=== PATIENT | female | born 1955 | race Caucasian/White ===

== ENCOUNTER 2024-11-01 10:25 | Emergency (ER) | payer OTHER, SELFPAY ==
[2024-11-01 10:30] VITALS: BP 143/96
[2024-11-01 10:49] VITALS: BP 136/81; BMI 25.0
[2024-11-01] MEDS: MOTRIN 400 MG PO (11:50)
--- NOTE | 2024-11-01 12:20 | ED.GENMED ---
History of Present Illness
General
Chief Complaint: Musculo-Skeletal Complaint
Source: patient
Exam Limitations: none
Time Seen by Provider: 11/01/24 10:39
Nursing documentation reviewed up to this point in time: agreed with
History of Present Illness
History of Present Illness:
68-year-old female with history of hypertension and hyperlipidemia presents to the emergency room for evaluation of left shoulder and elbow pain. Patient says that she slipped on a slippery floor in the kitchen Prior to arrival. She said she
fell backwards landed on left elbow and forearm outstretched. She says she felt a 'crack' in her shoulder and elbow on the left. She has had some pain in the elbow as well as pain with range of motion in the shoulder since. She denies any head
strike. No headache or neck pain. She denies any back pain. Denies any chest or abdominal pain or any other injuries. She has been ambulatory since the fall. Denies blood thinners.
Past History
Past History
ED Past Medical History: None
ED Past Surgical History: None
Social History
Tobacco: Non-smoker
Review of Systems
Review of Systems
All Other Systems: ROS reviewed and negative except as documented in HPI and ROS
Musculoskeletal: Reports joint pain
Phy Exam
Physical Exam
Physical Exam:
General: Awake, alert; no acute distress
Head: Normocephalic, atraumatic
Eyes: Conjunctiva normal
Throat: Airway intact, handling secretions
Neck: Trachea midline, no cervical spine tenderness
Back: No signs of trauma the back or flank and no tenderness in the thoracic or lumbar spine
Lungs: Breathing comfortably no distress
Heart: Regular rate; no chest wall tenderness
Abd: Soft, non distended, nontender
Neuro: No gross deficits; motor and sensory intact distally left upper extremity across radial, median, ulnar nerve distributions
Skin: no rash, minor contusion to the left elbow
Extremities: Good pulses throughout specifically strong left radial, see below
Left shoulder--she has tenderness of the anterior humeral head and the AC joint on the left; she has no pain with range of motion of the left shoulder passively but on active range of motion significant pain with extension above 90 degrees,
abduction, internal and external rotation
Left elbow�patient has contusion over the olecranon and tenderness in this area but full range of motion of the elbow and no joint effusion
Left wrist--full range of motion, mild dorsal tenderness but no snuffbox tenderness
Scores
Heart Failure Risk
Heart Failure Risk Score: Not Applicable
Heart Score for Chest Pain Patients
STEMI patient?: Not applicable
Withdrawal Assessment of Alcohol
Withdrawal Assessment Completed?: Not applicable
Course
Orders/Labs/Results
Orders:
Orders
11/01/24 10:35
Elbow, 3 view, Left [CR Elbow - Left Min 3 Views ] Urgent
Comment:
Reason For Exam: injury
11/01/24 10:36
Wrist, Left 3 Views CR [CR Wrist - Left Min 3 Views] Urgent
Comment:
Reason For Exam: injury
11/01/24 11:41
CR Shoulder - Left Min 2 View* Urgent
Comment:
Reason For Exam: pain with fall
11/01/24 11:42
Ibuprofen [Motrin] 400 mg PO NOW STA
11/01/24 11:46
Ibuprofen [Motrin] 400 mg .ROUTE .STK-MED ONE
Vital Signs
Initial and Last Documented VS:
Initial Vital Signs
Temp Pulse Resp BP Pulse Ox
36.8 C 63 16 143/96 98
11/01/24 10:30 11/01/24 10:30 11/01/24 10:30 11/01/24 10:30 11/01/24 10:30
Last Documented Vital Signs
Temp Pulse Resp BP Pulse Ox
37.0 C 82 16 136/81 99
11/01/24 10:49 11/01/24 10:49 11/01/24 10:49 11/01/24 10:49 11/01/24 10:49
MDM/Problems Addressed
Differential Diagnosis Includes:
Rotator cuff injury, shoulder dislocation, shoulder fracture, elbow fracture, contusion/bursitis
MDM/Problems Addressed:
68-year-old female presents after a slip and fall in the kitchen; she has pain in the left shoulder and elbow since. Vitals and exam as above. Sent for x-rays of the wrist, elbow, shoulder�no acute fractures or dislocations. I suspect elbow pain
is due to direct blow with contusion to the olecranon area. I suspect that she likely has a rotator cuff injury in the left shoulder. Stable for discharge with supportive care. Will have her follow-up with orthopedist as an outpatient. Patient
comfortable with this plan. Spoke about return precautions and all questions were answered.
*Radiology
Radiology exam reviewed: preliminary read by ED provider and radiology read reviewed
*Pulse Oximetry
Patient hypoxic: no
*Critical Care Note
Total Time (30-74mins, 75-104mins- exclusive of procedures): Not Applicable
Data Reviewed
Source: patient
ED Attending Note
-
Portions of this chart may have been created with voice recognition software.� Occasional wrong word or��sound alike� substitutions may have occurred due to the inherent limitations of voice recognition software.
Discharge Plan
Departure
Patient Disposition: Home (Routine Discharge)
Date of Disposition: 11/01/24
Time of Disposition: 12:27
Patient with high blood pressure during this ER visit?: No
Discharge Problem:
Injury of left shoulder, Contusion of elbow
Instructions: Rotator Cuff Injury (DC), Contusion
Prescriptions:
No Action
No Current Medications
0
Referrals:
Ab Yusuf MD [Active] - Call in 1-3 days for appt
Sachin Chiang MD [Family Provider] -
Activity Restrictions/Additional Instructions:
Thank you for visiting the Emergency Department at [facility].
1. Please schedule a follow up appointment as directed. Call first thing tomorrow morning to make an appointment.
2. If indicated, please take your medications as instructed and indicated on discharge paperwork.
3. If any of your symptoms do not improve, or persist, or become more severe within 6-12 hours, please return to the emergency department for further care.
4. Please return to the emergency department if you develop a headache, neck pain/stiffness, fever greater than 100.4F, chest pain, shortness of breath, persistent nausea, vomiting, slurred speech, difficulty walking, numbness/tingling, weakness,
signs of infection or any other symptoms that are worrisome to you.
Please call [phone] if you have any questions.
Interventions
Interventions:
*Risk Screen - Suicide Last Done: 11/01/24 10:30
*General Assessment Last Done: 11/01/24 10:49
*Neglect/Abuse Screening Last Done: 11/01/24 10:30
*ED- Fall Risk Assessment Last Done: 11/01/24 10:49
*ED COVID-19 Vaccine History Last Done: 11/01/24 10:49
ED-Musculoskeletal Assessment Last Done: 11/01/24 10:49
Discharge Date and Time
Print Language: NICARAGU[place]
== END 2024-11-01 12:44 | disposition home or self-care (01) ==
LOC: EMR 10:25
PROVIDERS: EMERGENCY PHYSICIAN Emergency Medicine; FAMILY PHYSICIAN Family Medicine
DX: S49.92XA Unspecified injury of left shoulder and upper arm, initial encounter (principal); S50.02XA Contusion of left elbow, initial encounter; W01.0XXA Fall on same level from slipping, tripping and stumbling without subsequent striking against object, initial encounter; I10 Essential (primary) hypertension; E78.5 Hyperlipidemia, unspecified
CPT/HCPCS: 99283; 73030; 73080; 73110